=== PATIENT | male | born 1985 | race African-American/Black ===

== ENCOUNTER 2018-07-21 21:02 | Emergency (ER) | payer MEDICAID ==
[~2018-07-21] VITALS: Ht 188 cm; Wt 95.0 kg
[2018-07-21] MEDS ORDERED: KETOROLAC 60MG/2ML VIAL IM ONE (22:00)
[2018-07-21] MEDS ORDERED: DEXAMETHASONE 4MG TABLET PO ONE (22:00)
[2018-07-21 22:33] VITALS: BP 120/72
== END 2018-07-21 22:41 | disposition home or self-care (01) ==
LOC: ER 21:02
DX: J45.901 Unspecified asthma with (acute) exacerbation (principal); R68.83 Chills (without fever)
CPT/HCPCS: 96372; 99283; J1885; J8540